=== PATIENT | male | born 1960 | race Caucasian/White ===

== ENCOUNTER → 2023-05-22 09:31 | Outpatient (REF) | payer MEDICARE, OTHER, SELFPAY | LOC: RAD 09:31 | PROVIDERS: ATTENDING PHYSICIAN Nurse Practitioner Family; FAMILY PHYSICIAN Family Medicine | DX: J40 Bronchitis, not specified as acute or chronic (principal) | CPT/HCPCS: 71046 ==

== ENCOUNTER 2024-12-29 10:18 | Emergency (ER) | payer MEDICARE, OTHER, SELFPAY ==
[2024-12-29 10:30] VITALS: BP 143/79
[2024-12-29 11:46] VITALS: BMI 35.9
--- NOTE | 2024-12-29 11:57 | ED.GENMED ---
History of Present Illness
General
Chief Complaint: Fall
Source: patient
Exam Limitations: none
Time Seen by Provider: 12/29/24 11:20
Nursing documentation reviewed up to this point in time: agreed with
History of Present Illness
History of Present Illness:
see MDM
Past History
Past History
ED Past Medical History: Asthma, GERD and Other (Osteoarthritis, sciatica)
ED Past Surgical History: Orthopedic
Patient has exhibited threatening behavior?: No
PSI?: No
Social History
Tobacco: Non-smoker
Alcohol: Occasional
Personal:
Living: with family
Employment: Employed
Family History
Family History: Negative Diabetes, Hypertension, Early CAD, Asthma or Cancer
Review of Systems
Review of Systems
Allergies reviewed?: Yes
All Other Systems: Not applicable
Phy Exam
Physical Exam
Physical Exam:
GENERAL: Alert , in no apparent distress, comfortable at rest
HEAD: NCAT
CV: 2+ DP PULSES B/L
NEUROLOGICAL: Alert and oriented, no focal neuro deficits, , 5/5 strength, sensation intact, ambulation slight limp right leg
SKIN: Warm and dry, no skin changes or bruising
MUSCULOSKELETAL: Normal inspection of the right hip, patient has no significant tenderness to palpation but is complaining of right inguinal pain with hip flexion and rotation and internally and externally, he has no tenderness or swelling to the
distal leg, no knee pain, no lumbar spine tenderness. Neurovascularly intact. No clicking. Negative straight leg raise
Patient ambulates with a slight limp on his right leg
PSYCH: Normal and appropriate interaction.
Course
Orders/Labs/Results
Orders:
Orders
12/29/24 11:21
CR Hip - RT w/wo Pel 2-3 Vw* Urgent
Comment:
Reason For Exam: fall, pain
Include a pelvis x-ray?: Yes
Vital Signs
Initial and Last Documented VS:
Initial Vital Signs
Temp Pulse Resp BP Pulse Ox
36.9 C 72 18 143/79 96
12/29/24 10:30 12/29/24 10:30 12/29/24 10:30 12/29/24 10:30 12/29/24 10:30
Last Documented Vital Signs
Temp Pulse Resp BP Pulse Ox
36.9 C 72 18 143/79 96
12/29/24 10:30 12/29/24 10:30 12/29/24 10:30 12/29/24 10:30 12/29/24 10:30
MDM/Problems Addressed
MDM/Problems Addressed:
Note:
CHIEF COMPLAINT(S)
Right hip pain following a fall.
HISTORY OF PRESENT ILLNESS
The patient is a 64-year-old male with a history of prior hip problems, currently under treatment, who presented with worsening right hip pain following a fall last night around midnight, while ascending the stairs. The patient reports falling
directly onto the left hip, further complicating the ongoing right hip problem. The patient experienced increased pain with weight bearing and lifting the leg, but denied any head or neck injury, or pain in other areas. The patient does not report
any numbness, radicular pain, or lower back pain. The patient is not on anticoagulants and self-reports limping, which was not significant prior to the incident. The patient has not taken any medication for pain since the incident, apart from his
regular medications. The patient describes significant pain on palpation specifically at the hip region. The patient was already scheduled to see Dr. Hi for pre-existing hip issues next and contacted them this morning following the fall.
Patient has had an injection in the right hip last week
He has no new radiating pain, numbness tingling or weakness in the leg, incontinence, fever. Patient was able to weight-bear but his limping.
CHRONIC MEDICAL CONDITIONS SIGNIFICANTLY AFFECTING CARE
The patient has a history of asthma.
PE : see above
PLAN
Review of radiological imaging to assess for the presence of hip or pelvic fractures. Treatment options to include non-steroidal anti-inflammatory drugs such as ibuprofen for inflammation control, and potential use of a walking aid to reduce weight
bearing on the affected side. The patient is scheduled for a follow-up with Dr. Hi for continued management of pre-existing hip concerns. Pain management prior to ensuring there is no fracture, to avoid complications.
DIFFERENTIAL DIAGNOSIS
The Differential Diagnosis includes, in no particular order and is not limited to:
1. Hip fracture
2. Pelvic fracture
3. Muscle strain
4. Contusion
5. Tendonitis
6. Bursitis
7. Osteoarthritis exacerbation
8. Sprain
9. Labral tear
10. Sciatica.
64-year-old male with some ongoing right hip discomfort chronically here with worsening pain in his right hip following a mechanical fall off his steps yesterday evening around midnight. Patient says he did not see because it was dark and tripped
up the steps landing on his left side. He now has more pain in his right hip with movement. He is able to get up and walk. He took Aleve last night without significant improvement but was able to weight-bear this morning. There is no numbness
tingling or weakness in the leg, radiation of pain, inability to weight-bear. He has nothing for pain this morning. X-rays were independently reviewed showing some osteoarthritis but no obvious fractures. I discussed with the radiologist who
agreed. Patient was offered steroids but prefer Aleve twice a day and Tylenol for pain and already has follow-up appointment with Ortho. Return precautions given
*Pulse Oximetry
SaO2: 96
Oxygen Mode of Delivery: Room air
Patient hypoxic: no (96)
*Critical Care Note
Total Time (30-74mins, 75-104mins- exclusive of procedures): Not Applicable
ED Attending Note
-
Portions of this chart may have been created with voice recognition software.� Occasional wrong word or��sound alike� substitutions may have occurred due to the inherent limitations of voice recognition software.
Discharge Plan
Departure
Patient Disposition: Home (Routine Discharge)
Date of Disposition: 12/29/24
Time of Disposition: 12:01
Patient with high blood pressure during this ER visit?: Yes
Condition: Fair
Covid-19: Not Applicable
Discharge Problem:
Arthritis of hip, Strain of right hip
Instructions: Hip pain - ED (DC)
Prescriptions:
No Action
omeprazole 40 mg Capsule,Delayed Release(Dr/Ec)
40 mg PO DAILY
montelukast 10 mg Tablet
10 mg PO DAILY
febuxostat 40 mg Tablet
40 mg PO DAILY
fluticasone furoate-vilanterol [Breo Ellipta] 200-25 mcg/dose Blister With Device
1 inh INHALATION R DAILY
albuterol sulfate 90 mcg/actuation HFA aerosol inhaler
1 puff INHALATION R Q4 PRN (Reason: sob/wheezing)
prednisone 10 mg Tablet
See Rx Instructions .ROUTE .COMPLEX Qty: 45 0RF
Rx Instructions:
Take By Mouth:
50 mg daily x3 days, 40 mg daily x3 days,
30 mg daily x3 days, 20 mg daily x3 days,
10 mg daily x3 days
hydrocodone-acetaminophen 5-300 mg tablet
1 tab PO Q8H PRN (Reason: Pain) Qty: 12 0RF
Referrals:
Harley Jeff MD [Family Provider, [facility]] - Follow up in 2-3 days
Activity Restrictions/Additional Instructions:
Your hip pain is probably from a strain, you also have arthritis. This can flareup following an injury. Try Aleve twice a day with food for 3 to 5 days. You can also do Tylenol 2 extra strength in the morning, afternoon, evening for pain as well.
Ice off-and-on. You can use a cane on the left hand to help with weightbearing if you need to. Follow-up with Dr. Hi as planned next week. Return to the ER for swelling, inability to weight-bear, fevers or chills, numbness tingling or
weakness in the leg, incontinence etc.
Interventions
Interventions:
*Risk Screen - Suicide Last Done: 12/29/24 10:30
*General Assessment Last Done: 12/29/24 10:30
*Neglect/Abuse Screening Last Done: 12/29/24 10:30
ED-Musculoskeletal Assessment Last Done: 12/29/24 11:47
ED- Neurological Assessment Last Done: 12/29/24 11:47
Discharge Date and Time
Print Language: FRENCH
== END 2024-12-29 12:05 | disposition home or self-care (01) ==
LOC: EMR 10:18
PROVIDERS: EMERGENCY PHYSICIAN Emergency Medicine; FAMILY PHYSICIAN Family Medicine
DX: S76.011A Strain of muscle, fascia and tendon of right hip, initial encounter (principal); W10.8XXA Fall (on) (from) other stairs and steps, initial encounter; M16.11 Unilateral primary osteoarthritis, right hip; J45.909 Unspecified asthma, uncomplicated
CPT/HCPCS: 99283; 73502

== ENCOUNTER → 2025-01-14 18:00 | Outpatient (REF) | payer OTHER, SELFPAY | LOC: PAVMRI 18:00 | PROVIDERS: ATTENDING PHYSICIAN Orthopaedic Surgery; FAMILY PHYSICIAN Family Medicine | DX: M25.551 Pain in right hip (principal) | CPT/HCPCS: 73721 ==

== ENCOUNTER 2025-03-04 06:59 | Day surgery (SDC) | payer MEDICARE, OTHER, SELFPAY ==
--- NOTE | 2025-02-11 15:38 | CM ---
Patient is for possible G[facility]SELLE on 03/04/25, plan will be for [facility] and then outpatient PT/OT on 03/07, rn case management reached out to patient to review demographics, supports and confirm appointments after discharge
Plan; Message left for patient, rn case management will reach out to patient again.
--- NOTE | 2025-02-11 15:53 | CM ---
Orthopedic Case Management Assessment
Demographics: confirmed
Living situation: Patient lives in a 2 story home, 2 steps to enter, 1st floor set up.
Support Person Post Operatively: lives with significant other who is supportive and will assist after surgery.
History of
VN: yes
SNF:yes
Outpatient; Patient made aware that he needs to set up an appointment at [place] outpatient PT for 03/07
Has patient purchased required equipment: yes, walker, cane, shower Chair, raised toilet seat, hip kit and shower rails.
PCP: Dr. Jeff
Pharmacy: [facility] in [place]
Post Operative Discharge Plan: Patient for same day surgery on 03/04/25, [facility]. Patient will have [facility] visiting nurse services for 3 days and then outpatient therapy starting 03/07 at [facility], patient made aware that he needs to call and make an
appointment at [facility] for 03/07.
[2025-02-13 11:17] LABS: Hematocrit 46.0 % (39.0-52.0); Hemoglobin 15.9 g/dL (13.0-18.0); Mean Corp Hgb Conc. 34.6 g/dL (33.0-37.0); Mean Corpuscular Volume 95.0 fL (80.0-94.0); Platelet Count 143 10^3/uL (130-400); Red Cell Dist. Width 13.1 % (11.5-14.5)
[2025-02-13 11:38] LABS: Glycohemoglobin (HgbA1c) 5.2 % (4.0-5.9)
[2025-02-13 11:43] LABS: ALT (SGPT) 21 U/L (0-50); AST (SGOT) 23 U/L (17-59); Albumin 4.7 g/dl (3.5-5.0); Alkaline Phosphatase 89 U/L (38-126); Blood Urea Nitrogen 16 mg/dl (9-20); Calcium 9.4 mg/dl (8.4-10.2); Carbon Dioxide 29 mmol/L (22-30); Chloride 102 mmol/L (98-107); Glucose 88 mg/dl (70-99); Potassium 4.6 mmol/L (3.5-5.1); Sodium 139 mmol/L (135-145); Total Protein 7.5 g/dl (6.3-8.2); eGFR > 60.00
[2025-02-13 14:09] VITALS: BMI 35.6
[2025-02-13 14:23] VITALS: BMI 35.6
--- NOTE | 2025-02-20 11:42 | VNURNOTE ---
Home health liaison attempted to call patient to explain [facility] services and left voice message. Home health liasion will follow-up. Referral placed in care port
--- NOTE | 2025-02-23 11:12 | VNURNOTE ---
Patient is scheduled for an elective R THR on 03/04 - he is a same day patient with Dr Morrison. Spoke with patient prior to surgery. Introduced role of [facility] Liaison. Patient reports that he lives with his sig other.
He has DME including a rolling walker.
He had other joint operated on in the past but was not same day surgery.
PCP is Dr Jeff
Discussed [facility] joint protocol and post surgical plans. Per pt he might stay overnight, plan TBD.
Reviewed that he will have [facility]N services initially and will then start outpatient PT.
Patient selects [facility] for his home care needs and [facility]. Scheduled for 03/09 .
Patient is in agreement with plan and states that his sig other will be home with him. Advised to bring RW with him day of surgery. Referral accepted in [facility].
Plan: [facility] per [facility] joint protocol 03/04 then outpt PT on 03/09. [facility] liaison to watch if DC plans change.
[2025-03-04] VITALS (21 sets, daily range): BP systolic 109–149; BP diastolic 61–97; PULSE 75; O2SAT 98
[2025-03-04] MEDS: TYLENOL 650 MG PO ×2 (07:19→12:19)
[2025-03-04] MEDS: CELEBREX 200 MG PO (07:19)
[2025-03-04] MEDS: DILAUDID 0.5 MG IV (09:48)
[2025-03-04] MEDS: ANCEF 5 IV (12:19)
== END 2025-03-04 14:35 | disposition home health service (06) ==
LOC: SDS 06:59
PROVIDERS: ATTENDING PHYSICIAN Orthopaedic Surgery; FAMILY PHYSICIAN Family Medicine; OTHER PHYSICIAN Physician Assistant
DX: M16.11 Unilateral primary osteoarthritis, right hip (principal)
CPT/HCPCS: 27130; C1776; C1713; 36415; 73502; 80053; 83036; 85027; 87070; 93005; 97162

== ENCOUNTER 2025-03-25 09:50 | Outpatient (RCR) | payer MEDICARE, OTHER, SELFPAY | END 2025-03-25 23:59 | disposition home or self-care (01) | LOC: RPT 09:50 | PROVIDERS: ATTENDING PHYSICIAN Orthopaedic Surgery; FAMILY PHYSICIAN Family Medicine | DX: Z47.1 Aftercare following joint replacement surgery (principal); M25.551 Pain in right hip; Z73.6 Limitation of activities due to disability; R26.89 Other abnormalities of gait and mobility; M62.81 Muscle weakness (generalized); Z96.641 Presence of right artificial hip joint; Z96.652 Presence of left artificial knee joint; W10.9XXD Fall (on) (from) unspecified stairs and steps, subsequent encounter | CPT/HCPCS: 97110; 97116; 97162; 97530; 97535 ==